=== PATIENT | male | born 2000 | race Two or more races ===

== ENCOUNTER 2019-12-05 17:00 | Emergency (ER) | payer MEDICAID ==
[~2019-12-05] VITALS: Ht 167.6 cm; Wt 68.9 kg
--- NOTE | 2019-12-05 17:21 | NUR ---
PT AAOX4. AMBULATORY WITH STEADY GAIT. PT C/O "I FEEL LIKE PASSING OUT EVERY TIME IWALK" SEEN AT [facility]. PT DENIES PAIN. NO NEURO DEFICIT, PERRLA. PLACED ON MONITOR AND PULSE OX. NO SKIN ISSUES NOTED. MD AT BEDSIDE. WILL CONTINUE TO MONITOR.
--- NOTE | 2019-12-05 17:37 | NUR ---
CALLED [facility] OF THE [facility] [phone]. SPOKE WITH THE ER REGARDING PT BEING THERE EARLIER TODAY.
--- NOTE | 2019-12-05 17:52 | NUR ---
PT denies pain. Able to ambulate with steady gait. VSS.
--- NOTE | 2019-12-05 17:53 | NUR ---
Patient discharged to home in stable condition. Written and verbal after care instructions given. Patient verbalizes understanding of instruction. Pt siged homeless waiver. Vss, no acute distress noted.
[2019-12-05 18:00] VITALS: BP 126/72
== END 2019-12-05 18:00 | disposition home or self-care (01) ==
LOC: ER 17:01
DX: R10.84 Generalized abdominal pain (principal); R53.1 Weakness